=== PATIENT | male | born 1955 | race Caucasian/White ===

== ENCOUNTER 2017-01-27 16:42 | Day surgery (SDC) | payer OTHER ==
[~2017-01-27] VITALS: Ht 185.4 cm; Wt 133.6 kg
[~2017-01-27 16:42] MED LIST: LACTATED RINGER'S 1000 ML INJ 1,000 ML IV ONE; ONDANSETRON HCL 4 MG/2 ML VIAL IV PUSH ONE; PROPOFOL 200 MG/20 ML AMP IV ONE
[2017-01-27] MEDS ORDERED: HYDR25TA5 PO (17:11)
[2017-01-27] MEDS ORDERED: LISI-515 PO (17:11)
[2017-01-27] MEDS ORDERED: INSULIN HUMAN REGULAR 1,000 UNITS/10 ML VIAL SQ PRN (17:15)
[2017-01-27] MEDS ORDERED: CHLORHEXIDINE GLUCONATE 2 % 1 PACK (2 CLOTHS) TOPICAL PRN (17:15)
[2017-01-27] MEDS ORDERED: POVIDONE IODINE 5% (ANTISEPSIS KIT) 4 APPLICATIONS EACH NARE PRN (17:15)
[2017-01-27] MEDS ORDERED: METOPROLOL TARTRATE 25 MG TAB PO PRN (17:15)
[2017-01-27] MEDS ORDERED: LACTATED RINGER'S 1000 ML IV PRN (17:15)
[2017-01-27] MEDS ORDERED: SODIUM CHLORID 0.9% 500 ML IV PRN (17:15)
[2017-01-27] MEDS ORDERED: ATROPINE SULFATE 1% OPHT SOLN 2 ML BTL ONE (17:24)
[2017-01-27] MEDS: CYCLOPENTOLATE HCL 1% OPHT SOLN 2 ML BTL LEFT EYE SCH ×4 (18:00→18:45)
[2017-01-27] MEDS: ATROPINE SULFATE 1% OPHT SOLN 5 ML BTL LEFT EYE SCH ×4 (18:00→18:45)
[2017-01-27] MEDS: PHENYLEPHRINE HCL 2.5% OPTH SOLN 2 ML BTL LEFT EYE SCH ×4 (18:00→18:45)
[2017-01-27] MEDS: TROPICAMIDE 1% OPHT SOLN 15 ML BTL LEFT EYE SCH ×4 (18:00→18:45)
[2017-01-27] MEDS ORDERED: FAMOTIDINE 20 MG/2 ML VIAL ONE (18:48)
[2017-01-27] MEDS ORDERED: MIDAZOLAM HCL 2 MG/2 ML VIAL ONE (18:48)
[2017-01-27] MEDS ORDERED: DEXAMETHASONE SOD PHOS 4 MG/ML VIAL ONE ×2 (18:48→18:49)
[2017-01-27] MEDS ORDERED: BALANCED SALT SOLN OPHT IRRIG 15 ML BTL ONE (18:49)
[2017-01-27] MEDS ORDERED: ceFAZolin INJ 1,000 MG VIAL ONE (18:49)
[2017-01-27] MEDS ORDERED: EPINEPHrine HCL (1:1000) 1 MG/ML VIAL ONE (18:49)
[2017-01-27] MEDS ORDERED: STERILE WATER FOR INJECTION 20 ML VIAL ONE (18:49)
[2017-01-27] MEDS ORDERED: TOBRAMYCIN/DEXAMETHASONE OPTH OINT 3.5 GM TUBE ONE (18:50)
[2017-01-27 20:45] VITALS: TEMP 98
[2017-01-27] MEDS ORDERED: PRED1SUS LEFT EYE (20:59)
[2017-01-27] MEDS ORDERED: CYCL1%O LEFT EYE (20:59)
[2017-01-27] MEDS ORDERED: MOXIFLOXACIN 0.5% OPHT SOLN 3 ML BTL LEFT EYE SCH (21:00)
[2017-01-27] MEDS ORDERED: CYCLOPENTOLATE HCL 1% OPHT SOLN 2 ML BTL LEFT EYE SCH (21:00)
[2017-01-27] MEDS ORDERED: VIGA0.5D LEFT EYE (21:00)
[2017-01-27] MEDS ORDERED: prednisoLONE ACETATE 1% OPHT SUSP 5 ML BTL LEFT EYE SCH (21:00)
[2017-01-27] MEDS ORDERED: MORPHINE SULFATE 4 MG/ML INJ ONE (21:19)
[2017-01-27 22:00] VITALS: BP 137/89; PULSE 86; RESP 16; O2SAT 95
[2017-01-27] MEDS ORDERED: KETOROLAC TROMETHAMINE 30 MG/ML (IVP) VIAL ONE (22:04)
[2017-01-27] MEDS ORDERED: KETOROLAC TROMETHAMINE 30 MG/ML (IVP) VIAL IV PUSH ONE (23:45)
--- NOTE | 2017-01-29 01:07 | EKG ---
Date Performed: 01/27/2017 Time Performed: 17:10:09 PTAGE: 61 years EKG: Sinus rhythm NORMAL ECG NO PREVIOUS TRACING DOCTOR: Jose Perea Interpretating Date/Time 01/29/2017 01:06:20
--- NOTE | 2017-02-02 07:17 | MP ---
cc: MISAEL SOMMER MD DATE OF SURGERY January 27, 2017 PREOPERATIVE DIAGNOSIS Severe retinal detachment, macula off, multiple peripheral retinal tears left eye. POSTOPERATIVE DIAGNOSIS Severe retinal detachment, macula off, multiple peripheral retinal tears left eye. PROCEDURE Pars plana vitrectomy, retinal detachment repair, endolaser, air-fluid exchange, insertion of 16% SF6 gas left eye. COMPLICATION None. BLOOD LOSS Less than 1 cc. ANESTHESIA General. INDICATIONS FOR PROCEDURE This is a delightful patient who presented with severe vision loss in his left eye. The patient was found to have a large retinal detachments extending through his macula. The risks, benefits and alternatives were discussed with Mr. Joaquin and surgical repair was chosen. PROCEDURE NOTE After informed consent was obtained, the patient was brought to the operating room. General anesthesia was established. The left eye was prepped and draped in sterile fashion with Betadine in the conjunctival fornix. A three port pars plana vitrectomy was established with self-retaining infusion cannula. Core vitreous was evacuated and vitreous traction relieved via vitrectomy. Multiple superior temporal and temporal retinal tears were seen and careful vitrectomy was carried out surrounding these repairs to ensure complete relief of vitreous traction. Subretinal fluid was removed from peripheral retinal defects while PFO was instilled. The retina reattached quite nicely. Endolaser was applied surrounding peripheral retinal defects and areas of retinal weakening, areas of peripheral retinal thinning. Air-fluid exchange was carried out and the retina remained nicely attached. Scleral depression examination revealed no untreated retinal holes, tears or detachments. 16% SF6 gas was instilled. The trocars were removed and sclerotomies closed. Subconjunctival injection of Ancef and dexamethasone were given. The eye was patched with Tobramycin ointment. The patient was brought to the recovery room in stable condition and will continue followup at [facility] for his postoperative care until he returns home and then will arrange followup care with a vitreous specialist near him. Misael Sommer MD KW/SSB /1:03 AM /7:02 AM NEETA
== END 2017-01-27 22:30 | disposition home or self-care (01) ==
LOC: HSDC 16:42
PROVIDERS: ATTEND Ophthalmology
DX: H33.022 Retinal detachment with multiple breaks, left eye (principal); I10 Essential (primary) hypertension
CPT/HCPCS: 00145; 67113; 93005; J0171; J0690; J1100; J1885; J2250; J2270; J2405; J3010; J7120